=== PATIENT | female | born 1980 ===

== ENCOUNTER 2016-11-14 21:07 | Emergency (ER) | payer BC ==
[2016-11-14 21:14] VITALS: BMI 40.3
[2016-11-14 21:21] VITALS: RESP 16; TEMP 98.1
--- NOTE | 2016-11-14 21:43 | ED PDOC ---
Arrival/HPI - General Chief Complaint: Trauma Time Seen by Provider: 11/14/16 21:36 Historian: Patient - History of Present Illness Narrative History of Present Illness (Text): 11/14/16 21:36 This 36 yo female presents to this ED c/o left foot pain since early this morning. Patient stated she fell on the floor while standing on toilet. Patient denies ankle, knee, hip or back pain. Denies head injury or neck pain. Denies other complains. Patient stated that despite foot injury, she still went to the beach. Time/Duration: Other (see hpi) Quality: Aching Context: Home Past Medical History - Provider Review Nursing Documentation Reviewed: Yes - Infectious Disease Hx of Infectious Diseases: None - Reproductive Menopause: No - Psychiatric Hx Psychophysiologic Disorder: No Hx Substance Use: No - Surgical History Hx Section: Yes Hx Musculoskeletal Surgery: Yes (Right Wrist 1994, Bunions in both feet 2008 and 2009) - Anesthesia Hx Anesthesia: No Family/Social History - Physician Review Nursing Documentation Reviewed: Yes Family/Social History: No Known Family HX Smoking Status: Never Smoked Hx Alcohol Use: Yes Frequency of alcohol use: Socially Hx Substance Use: No Allergies/Home Meds Allergies/Adverse Reactions: Allergies No Known Allergies Allergy (Verified 11/14/16 21:37) Review of Systems - Review of Systems Constitutional: Normal. absent: Fatigue, Weight Change, Fevers Eyes: Normal ENT: Normal Respiratory: Normal. absent: SOB, Cough Cardiovascular: Normal. absent: Chest Pain, Palpitations Gastrointestinal: Normal. absent: Abdominal Pain, Nausea, Vomiting Genitourinary Female: Normal. absent: Hematuria Musculoskeletal: Other (left foot pain) Skin: Normal. absent: Rash Neurological: Normal. absent: Headache, Dizziness Endocrine: Normal Hemo/Lymphatic: Normal Psychiatric: Normal Physical Exam Vital Signs Temp Pulse Resp BP Pulse Ox 11/14/16 21:07 98.1 F 111 H 16 115/78 98 Temperature: Afebrile Blood Pressure: Normal Pulse: Regular Respiratory Rate: Normal Appearance: Positive for: Well-Appearing, Non-Toxic, Comfortable Pain Distress: None Mental Status: Positive for: Alert and Oriented X 3 - Systems Exam Head: Present: Atraumatic, Normocephalic Pupils: Present: PERRL Extroacular Muscles: Present: EOMI Conjunctiva: Present: Normal Mouth: Present: Moist Mucous Membranes Neck: Present: Normal Range of Motion Respiratory/Chest: Present: Clear to Auscultation, Good Air Exchange. No: Respiratory Distress, Accessory Muscle Use Cardiovascular: Present: Regular Rate and Rhythm, Normal S1, S2. No: Murmurs Abdomen: Present: Normal Bowel Sounds. No: Tenderness, Distention, Peritoneal Signs Back: Present: Normal Inspection Upper Extremity: Present: Normal Inspection, Normal ROM, Neurovascularly Intact , Capillary Refill < 2s. No: Cyanosis, Edema Lower Extremity: Present: NORMAL PULSES, Tenderness, Swelling, Neurovascularly Intact, Capillary Refill < 2 s, Other (Mild ecchymosis noted near 5th, 4th, and 3rd MPJs.). No: Edema, CALF TENDERNESS, Erythema, Deformity, Temperature Abnormalties Neurological: Present: GCS=15, CN II-XII Intact, Speech Normal, Motor Func Grossly Intact, Normal Sensory Function, Normal Cerebellar Funct, Gait Normal Skin: Present: Warm, Dry, Normal Color. No: Rashes Psychiatric: Present: Alert, Oriented x 3, Normal Insight, Normal Concentration Medical Decision Making ED Course and Treatment: 11/14/16 21:36 Patient refused Pain medication at this time. 11/14/16 23:30 Re-evaluation. Patient feels better. Discussed results and plan with patient who expresses understanding. All questions answered and there is agreement with the plan to discharge home with instructions. Patient stable for discharge. Return if symptoms persist or worsen. Re-evaluation Time: 23:32 Reassessment Condition: Re-examined, Improved - RAD Interpretation Radiology Orders: 11/14/16 21:39 FOOT LEFT 3 VIEWS ROUTINE [RAD] Stat - Procedure PROCEDURE NOTE (Text): 11/14/16 23:30 PROCEDURE: SPLINT APPLICATION Applied by Commercial Real Estate Assistant, supervised by Emergency Provider. Location: left foot Procedure: The area of the splint was appropriately positioned. A 5 inch ortho glass posterior splint was applied. Post-procedure: Good position. Neurovascular status remains intact. Patient tolerated the procedure well with no immediate complications. Disposition/Present on Arrival - Present on Arrival Any Indicators Present on Arrival: No History of DVT/PE: No History of Uncontrolled Diabetes: No Urinary Catheter: No History of Decub. Ulcer: No History Surgical Site Infection Following: None - Disposition Have Diagnosis and Disposition been Completed?: Yes Diagnosis: Metatarsal bone fracture Disposition: HOME/ ROUTINE Disposition Time: 23:32 Patient Plan: Discharge Condition: GOOD Discharge Instructions (ExitCare): Foot Fracture in Adults (ED) Additional Instructions: Call private Executive Administrative Assistant for follow up visit i 1-2 days. keep foot elevated, and rest, crutches, and splint. Keep splint clean and dry . Return to emergency if splint to tight or worsen of pain. Prescriptions: Ibuprofen [Motrin] 600 mg PO Q8 PRN #20 tab PRN Reason: Pain, Severe (8-10) Referrals: Jessica Chow MD [Primary Care Provider] - Follow up with primary Dasha Samuel DPM [Staff Provider] - Follow up with primary Forms: [employer] [facility] (Malay), WORK NOTE
[2016-11-14 23:55] VITALS: BP 118/65; PULSE 101; O2SAT 99
--- NOTE | 2016-11-15 07:36 | RAD ---
PROCEDURE: Left Foot Radiographs. HISTORY: pain s/p fall COMPARISON: None. FINDINGS: BONES: Nondisplaced oblique fracture distal 5th metatarsal diaphysis. No other fracture. Status post osteotomy 1st metatarsal head. Two screws seen within 1st metatarsal. There is a circumscribed sclerotic density overlying the lateral aspect of the cuboid seen on the oblique view only. Possible artifactual from positioning. This is not seen on other views. JOINTS: Normal. SOFT TISSUES: Normal. OTHER FINDINGS: None. IMPRESSION: Nondisplaced fracture 5th metatarsal diaphysis.
== END 2016-11-14 23:58 | disposition home or self-care (01) ==
LOC: ED 21:07
DX: S92.355A Nondisplaced fracture of fifth metatarsal bone, left foot, initial encounter for closed fracture (principal); W18.11XA Fall from or off toilet without subsequent striking against object, initial encounter; Y93.89 Activity, other specified; Y92.89 Other specified places as the place of occurrence of the external cause